=== PATIENT | female | born 1985 | race Two or more races ===

== ENCOUNTER 2020-07-18 11:50 | Inpatient (IN) | payer OTHER ==
[~2020-07-18] VITALS: Ht 167.6 cm; Wt 75.3 kg
[2020-07-18] MEDS ORDERED: PRENATAL TABLE1 EAC3 PO (12:06)
[2020-07-18] MEDS ORDERED: FOLBEE PLUS CZ1 EACH PO (12:07)
[2020-07-20] MEDS ORDERED: Anaprox DS PO (09:14)
== END 2020-07-20 11:23 | disposition home or self-care (01) | DRG 807 ==
LOC: LDR 11:50 → SURG-SUITE 11:50
PROVIDERS: ADMIT Obstetrics & Gynecology; ATTEND Obstetrics & Gynecology
PROC: 10E0XZZ Delivery of Products of Conception, External Approach (ICD-10-PCS; principal; 2020-07-18)
PROC: 0KQM0ZZ Repair Perineum Muscle, Open Approach (ICD-10-PCS; 2020-07-18)
PROC: 4A1HXFZ Monitoring of Products of Conception, Cardiac Rhythm, External Approach (ICD-10-PCS; 2020-07-18)
DX: O70.1 Second degree perineal laceration during delivery (principal); Z37.0 Single live birth; Z3A.37 37 weeks gestation of pregnancy; Z20.828 Contact with and (suspected) exposure to other viral communicable diseases